=== PATIENT | male | born 1980 ===

== ENCOUNTER 2024-08-24 13:59 | Emergency (ER) | payer SELFPAY ==
[2024-08-24 14:29] VITALS: BP 163/100
--- NOTE | 2024-08-24 14:34 | ED.MUSCINJ ---
HPI-Injury
General
Chief Complaint: Fall
Time Seen by Provider: 08/24/24 15:23
ED Provider Triage
-
Patient seen by provider in Triage?: Seen in Triage
Attestation: A medical screening examination has been initiated by a qualified medical provider. Based on the assessment performed at this time, it has been determined that an emergent medical condition may exist and the patient has been informed
that further medical evaluation and possible additional diagnostic testing may be needed.
HPI: 43-year-old male not anticoagulated slipped on ice while at work today. He fell backwards hitting his head and his left side he has complaints of headache lower back pain left rib and left upper arm pain initially seen at the urgent care and
sent here for imaging
CT of head x-ray lumbar spine left humerus and left ribs ordered
GENERAL: Alert , in no apparent distress
EYE: No visual abnormalities.
NECK: Trachea midline
ENT: No visible abnormalities.
LUNGS: No acute respiratory distress
NEUROLOGICAL: Alert and oriented
SKIN: Skin intact. No visible changes.
MUSCULOSKELETAL: Moving extremities normally
PSYCH: Normal and appropriate interaction.
This is a medical evaluation conducted in person to initiate diagnostic evaluation and provide initial therapeutics. Please see further documentation by the treating clinician.
Injury Course
Orders/Labs/Results
Orders:
Orders
08/24/24 14:33
CT Head W/o Iv Contrast Urgent
Comment:
Reason For Exam: fall
CR Lumbar Spine 2 Or 3 Views Urgent
Comment:
Reason For Exam: fall
CR Ribs-left 3 Vw W/pa Chest Urgent
Comment:
Reason For Exam: fall
08/24/24 14:34
CR Humerus - Left Min 2 Views* Urgent
Comment:
Reason For Exam: fall
08/24/24 16:10
Ibuprofen [Motrin] 600 mg PO NOW STA
ED Attending Note
-
Portions of this chart may have been created with voice recognition software.� Occasional wrong word or��sound alike� substitutions may have occurred due to the inherent limitations of voice recognition software.
Discharge Plan
Departure
Patient Disposition: Home (Routine Discharge)
Date of Disposition: 08/24/24
Time of Disposition: 16:11
Patient with high blood pressure during this ER visit?: No
Condition: Good
Covid-19: Not Applicable
Discharge Problem:
Head injury
Instructions: Head Injury in Adults (DC), Contusion (DC), Preventing falls in adults, Ibuprofen
Stand Alone Forms: Return to Work
Interventions
Interventions:
*Risk Screen - Suicide Last Done: 08/24/24 14:29
*General Assessment Last Done: 08/24/24 16:49
*Neglect/Abuse Screening Last Done: 08/24/24 14:29
ED- Fall Risk Assessment Last Done: 08/24/24 16:49
*ED COVID-19 Vaccine History Last Done: 08/24/24 16:50
*Nursing Disposition Last Done: 08/24/24 16:49
ED-Musculoskeletal Assessment Last Done: 08/24/24 16:49
ED- Neurological Assessment Last Done: 08/24/24 16:49
ED-Skin Assessment Last Done: 08/24/24 16:49
Discharge Date and Time
Discharge Date/Time: 08/24/24 16:50
Print Language: LATVIAN
--- NOTE | 2024-08-24 16:12 | ED.MUSCINJ ---
HPI-Injury
General
Chief Complaint: Fall
Source: patient
Exam Limitations: none
Time Seen by Provider: 08/24/24 15:23
Nursing documentation reviewed up to this point in time: agreed with
History of Present Illness-Injury
Is this injury a work related problem?: No
Is pt an associate of [facility]/[place]?: No
Initial Injury comments:
Patient to ED s/p fall. States he slipped on black ice while walking into work. Hit head on pavement. NO LOC. Able to get self up. Complains of headacke. Left arm pain, left lateral chest wall pain, low back pain. Sent to first but referred
by to ED.
Past History
Past History
ED Past Medical History: None
Review of Systems
Review of Systems
Allergies reviewed?: Yes
All Other Systems: ROS reviewed and negative except as documented in HPI and ROS
Constitutional: Reports no symptoms
EENT: Reports no symptoms
Respiratory: Reports no symptoms
Cardiac: Reports no symptoms
ABD/GI: Reports no symptoms
: Reports no symptoms
Musculoskeletal: Reports joint pain (Pain to left upper arm, left lateral ribs, low back.)
Skin: Reports no symptoms
Neurological: Reports headache
Psychiatric: Reports no symptoms
Musculoskeletal Injury Exam
Musculoskeletal Injury Exam
Left Upper Arm:
Pain with Movement?: Moderate
Tender to palpation?: Moderate
Soft tissue swelling?: None
External deformity and angulation?: None
Joint effusion?: None
Contusion?: Moderate
Hematoma-local bleeding into tissue?: None
Strain- Sprain- Tear (Connective tissue injury)?: None
Crepitus with movement?: No
Joint instability?: No
Malalignment/deformity?: No
Range of motion: Full
Distal skin color and temperature: normal-warm & good color
Capillary Refill: normal
Normal distal neurovascular exam?: Yes
Left Lateral Chest:
Pain with Movement?: Moderate
Tender to palpation?: Moderate
Soft tissue swelling?: None
External deformity and angulation?: None
Joint effusion?: None
Contusion?: Moderate
Hematoma-local bleeding into tissue?: None
Strain- Sprain- Tear (Connective tissue injury)?: None
Crepitus with movement?: No
Joint instability?: No
Malalignment/deformity?: No
Range of motion: Limited
Distal skin color and temperature: normal-warm & good color
Capillary Refill: normal
Normal distal neurovascular exam?: Yes
Bilateral Lower Back:
Pain with Movement?: Moderate
Tender to palpation?: Moderate
Soft tissue swelling?: None
External deformity and angulation?: None
Joint effusion?: None
Contusion?: Moderate
Hematoma-local bleeding into tissue?: None
Strain- Sprain- Tear (Connective tissue injury)?: None
Crepitus with movement?: No
Joint instability?: No
Malalignment/deformity?: No
Range of motion: Limited
Distal skin color and temperature: normal-warm & good color
Capillary Refill: normal
Normal distal neurovascular exam?: Yes
Phy Exam
General Physical Exam
General Presentation: well appearing and no apparent distress
General age: appears stated age
General Skin: warm and dry
General Habitus: normal
General Mental: alert
Pulmonary Exam
Pulmonary Exam: no respiratory distress
Neurological Exam
Neurological Exam: alert, oriented x3, CN II-XII intact, no motor deficits, no sensory deficits, speech normal and normal gait
Juan Coma Scale
Eye Opening: Spontaneous
Verbal Response: Oriented
Motor Response: Obeys Commands
GCS Total Score: 15
Musculoskeletal Exam
Musculoskeletal Exam: full ROM and neuro vasc intact
Skin Exam
Skin Exam: normal color, warm/dry and no rash
Psychiatric Exam
Psychiatric Exam: normal mood/affect
Sepsis
Sepsis Screening
Sepsis Assessment: Sepsis Ruled Out
Sepsis Screen
Sepsis Screen: Sepsis Ruled Out
Date: 08/24/24
Time: 16:19
Injury Course
Orders/Labs/Results
Orders:
Orders
08/24/24 14:33
CT Head W/o Iv Contrast Urgent
Comment:
Reason For Exam: fall
CR Lumbar Spine 2 Or 3 Views Urgent
Comment:
Reason For Exam: fall
CR Ribs-left 3 Vw W/pa Chest Urgent
Comment:
Reason For Exam: fall
08/24/24 14:34
CR Humerus - Left Min 2 Views* Urgent
Comment:
Reason For Exam: fall
08/24/24 16:10
Ibuprofen [Motrin] 600 mg PO NOW STA
*Radiology
Radiology exam reviewed: radiology read reviewed
*Pulse Oximetry
Patient hypoxic: no
*Critical Care Note
Total Time (30-74mins, 75-104mins- exclusive of procedures): Not Applicable
Update Note
Update Note:
Slipped on black ice from work. Hit head, no LOC. CT neg for acute findings. Pain to LUE, left lateral chest and low vback. Xrays reviewed, no evidence of fracture. Will treat at home with ice and ibuprofen. He is discharged home and will
follow upw tih workman's comp in AM
ED Attending Note
-
Portions of this chart may have been created with voice recognition software.� Occasional wrong word or��sound alike� substitutions may have occurred due to the inherent limitations of voice recognition software.
Discharge Plan
Departure
Patient Disposition: Home (Routine Discharge)
Date of Disposition: 08/24/24
Time of Disposition: 16:11
Patient with high blood pressure during this ER visit?: No
Condition: Good
Covid-19: Not Applicable
Discharge Problem:
Head injury
Instructions: Head Injury in Adults (DC), Contusion (DC), Preventing falls in adults, Ibuprofen
Stand Alone Forms: Return to Work
Interventions
Interventions:
*Risk Screen - Suicide Last Done: 08/24/24 14:29
*Neglect/Abuse Screening Last Done: 08/24/24 14:29
Discharge Date and Time
Print Language: [id number]
[2024-08-24] MEDS: MOTRIN 600 MG PO (16:28)
[2024-08-24 16:48] VITALS: BP 156/84
== END 2024-08-24 16:50 | disposition home or self-care (01) ==
LOC: EMR 13:59
PROVIDERS: EMERGENCY PHYSICIAN Emergency Medicine
DX: S09.90XA Unspecified injury of head, initial encounter (principal); W00.0XXA Fall on same level due to ice and snow, initial encounter; Y99.0 Civilian activity done for income or pay
CPT/HCPCS: 99284; 70450; 71101; 72100; 73060